=== PATIENT | male | born 1960 | race Caucasian/White ===

== ENCOUNTER 2020-12-05 16:53 | Emergency (ER) | payer SELFPAY ==
[2020-12-05] MEDS ORDERED: GLUCOPHAGE500 MG/TAB PO (17:06)
[2020-12-05 17:40] LABS: BASO # 0.03 (0.02-0.10); EOS # 0.03 (0.04-0.40); EOS % 0.3 % (0.0-4.0); HEMOGLOBIN 14.5 g/dL (13.5-18.0); LYMPH# 1.15 (1.50-4.00); MEAN CELL VOLUME 89 fl (78-100); MEAN CORPUSCULAR HEMOGLOBIN 29 pg (27-31); MEAN CORPUSCULAR HGB CONC 32 g/dL (33-37); MEAN PLATELET VOLUME 10.5 fl (7.4-10.4); MONO # 1.08 (0.20-0.80); NEU # 7.28 (1.40-6.50); PLATELET COUNT 207 K/mm3 (130-400); RED BLOOD COUNT 5.05 M/mm3 (4.20-5.60); RED CELL DISTRIBUTION WIDTH 12.2 % (11.5-14.5); WHITE BLOOD COUNT 9.6 K/mm3 (4.8-10.8)
[2020-12-05 17:51] LABS: POTASSIUM 4.3 mmol/L (3.5-5.1)
[2020-12-05 17:52] LABS: CALCIUM 9.7 mg/dL (8.3-10.5)
[2020-12-05] MEDS ORDERED: PANTOPRAZOLE SO40 MG PO (17:57)
[2020-12-05] MEDS ORDERED: COLCHICINE0.6 M2 PO (18:02)
[2020-12-05] MEDS ORDERED: NORCO 325 MG-51 TA1 PO (18:18)
[2020-12-05] MEDS ORDERED: PREDNISONE20 M1 PO (18:18)
[2020-12-05 18:20] VITALS: BP 143/82
[2020-12-05 18:49] LABS: ERYTHROCYTE SEDIMENTATION RATE 108 mm/hr (0-20)
== END 2020-12-05 18:34 | disposition home or self-care (01) ==
LOC: ED 16:53
PROVIDERS: Family Medicine
DX: M10.032 Idiopathic gout, left wrist (principal); E11.9 Type 2 diabetes mellitus without complications; K21.9 Gastro-esophageal reflux disease without esophagitis; Z79.84 Long term (current) use of oral hypoglycemic drugs; Z79.899 Other long term (current) drug therapy

== ENCOUNTER → 2020-12-08 | Outpatient (CLI) | payer SELFPAY ==
[~2020-12-08] MED LIST: COLCHICINE0.6 M2 PO; GLUCOPHAGE500 MG/TAB PO; NORCO 325 MG-51 TA1 PO; PANTOPRAZOLE SO40 MG PO; PREDNISONE20 M1 PO
[2020-12-08 11:37] LABS: ALBUMIN 3.9 g/dL (3.5-5.0)
[2020-12-08 11:38] LABS: POTASSIUM 4.3 mmol/L (3.5-5.1)
[2020-12-08 11:39] LABS: CALCIUM 9.5 mg/dL (8.3-10.5)
[2020-12-08 11:40] LABS: TOTAL PROTEIN 7.3 g/dL (6.4-8.3)
[2020-12-08 11:42] LABS: TOTAL BILIRUBIN 0.3 mg/dL (0.2-1.2)
== END ==
LOC: LAB 10:51
PROVIDERS: Nurse Practitioner
DX: M10.9 Gout, unspecified (principal); R74.01 Elevation of levels of liver transaminase levels